=== PATIENT | male | born 1970 | race Caucasian/White ===

== ENCOUNTER 2021-02-21 10:42 | Emergency (ER) | payer OTHER ==
[2021-02-21 10:54] VITALS: BP 127/75
--- NOTE | 2021-02-21 11:13 | ED Physician Documentation ---
History of Present Illness - Stated complaint Stated Complaint: L ELBOW PA - Chief complaint Chief Complaint: Trauma Ext - History obtained from History obtained from: Patient - History of Present Illness Timing: How many days ago (3) Pain level max: 6 Pain level now: 3 - Additonal information Additional information: Patient is a 50-year-old male who presents to the emergency department left elbow and left upper arm pain. This started after he was playing hockey on Monday night, fell landed on the left elbow. He states that is not unusual for him but usually the pain resolves before now. No numbness or tingling. He is able to move the elbow. He states there is swelling. Worse with movement, better with rest. Review of Systems Constitutional: denies: Fever, Chills GI: denies: Vomiting Musculoskeletal: denies: Neck pain, Back pain Neurologic: denies: Headache PD PAST MEDICAL HISTORY - Past Medical History Cardiovascular: Hypertension - Allergies Allergies/Adverse Reactions: Allergies Allergy/AdvReac Type Severity Reaction Status Date / Time No Known Drug Allergies Allergy Verified 02/21/21 10:51 - Social History Does the pt smoke?: No Smoking Status: Never smoker PD ED PE NORMAL - Vitals Vital signs reviewed: Yes - General General: Alert and oriented X 3, No acute distress - HEENT HEENT: Atraumatic, PERRL - Derm Derm: Warm and dry - Extremities Extremities: Other (L arm - Tender to palpation over the olecranon of the left elbow. Mild swelling. Mild redness. There is also mild tenderness about midway up the humerus. Neurovascularly intact. Full range of motion of the shoulder and elbow without significant pain.) - Neuro Neuro: Alert and oriented X 3 Results - Vitals Vitals: Vital Signs - 24 hr 02/21/21 10:51 Temperature 37.1 C Heart Rate 57 L Respiratory 16 Rate Blood Pressure 127/75 O2 Saturation 97 Oxygen O2 Source Room air - Rads (name of study) L elbow xray Radiology: Prelim report reviewed, EMP read contemporaneously, See rad report (1. Comminuted olecranon fracture with displacement. 2. A osseous density seen adjacent to the medial epicondyle. Differential diagnoses include a fracture of the medial humeral epicondyle versus calcific epicondylitis. ) L humerus xray Radiology: Prelim report reviewed, EMP read contemporaneously, See rad report Procedures - Splint (location) L arm Splint applied by: Physician, Tech Type of splint: Fiberglass, Long arm, Posterior Other: Patient tolerated well, No complications, Neurovascular intact, Sling provided PD MEDICAL DECISION MAKING - ED course Complexity details: reviewed results, re-evaluated patient, considered differential, d/w patient ED course: 50-year-old male with a closed olecranon fracture. Placed in a long-arm splint. Given a sling. Neurovascular intact. Declines any pain medication here or for home. Patient is right-handed. Patient will follow up with orthopedics for further care. Patient counseled regarding signs and symptoms for which I believe and urgent re-evaluation would be necessary. Patient with good understanding of and agreement to plan and is comfortable going home at this time This document was made in part using voice recognition software. While efforts are made to proofread this document, sound alike and grammatical errors may occur. Departure - Departure Disposition: 01 Home, Self Care Clinical Impression: Closed olecranon fracture Qualifiers: Encounter type: initial encounter Laterality: left Qualified Code(s): S52.022A - Displaced fracture of olecranon process without intraarticular extension of left ulna, initial encounter for closed fracture Condition: Good Instructions: ED Fx Upper Ext Follow-Up: [facility] [Provider Group] - Within 1 week Comments: Keep the splint in place until released by orthopedics. Return if you worsen. Your xray results: 1. Comminuted olecranon fracture with displacement. 2. A osseous density seen adjacent to the medial epicondyle. Differential diagnoses include a fracture of the medial humeral epicondyle versus calcific epicondylitis. Discharge Date/Time: 02/21/21 12:27
--- NOTE | 2021-02-21 11:51 | XRAY Report ---
PROCEDURE: Elbow 3 View LT INDICATIONS: fall, elbow pain TECHNIQUE: 3 views of the elbow were acquired. COMPARISON: X-ray 2 view humerus.. 02/21/2021 FINDINGS: Bones: There is a comminuted fracture of the olecranon process with displacement. There is an osseou s density adjacent to the medial humeral epicondyle with associated soft tissue stranding. No suspici ous bony lesions. Soft tissues: No elbow joint effusion. No suspicious soft tissue calcifications. Soft tissue swell ing over the posterior and medial aspects of elbow. IMPRESSION: 1. Comminuted olecranon fracture with displacement. 2. A osseous density seen adjacent to the medial epicondyle. Differential diagnoses include a fracture of the medial humeral epicondyle versus calcific epicondylitis. Reviewed by: Kirk Thurman MD on 02/21/2021 11:49 AM PDT Approved by: Kirk Thurman MD on 02/21/2021 11:49 AM PDT Station ID: [id number]
--- NOTE | 2021-02-21 11:51 | XRAY Report ---
PROCEDURE: Humerus LT INDICATIONS: fall, arm pain TECHNIQUE: 2 views of the humerus were acquired. COMPARISON: X-ray, 3 view left elbow. FINDINGS: Bones: There is a olecranon fracture. Humerus appears intact. No suspicious bony lesions. Soft tissues: No suspicious soft tissue calcifications. IMPRESSION: 1. Olecranon fracture with displacement. Please see separate elbow x-ray report. 2. Humerus appears intact. Reviewed by: Kirk Thurman MD on 02/21/2021 11:50 AM PDT Approved by: Kirk Thurman MD on 02/21/2021 11:50 AM PDT Station ID: [id number]
== END 2021-02-21 12:27 | disposition home or self-care (01) ==
LOC: ED 10:42
DX: S52.022A Displaced fracture of olecranon process without intraarticular extension of left ulna, initial encounter for closed fracture (principal); W18.30XA Fall on same level, unspecified, initial encounter; Y93.22 Activity, ice hockey; I10 Essential (primary) hypertension
CPT/HCPCS: 29105